=== PATIENT | male | born 1955 | race Caucasian/White ===

== ENCOUNTER 2016-09-09 14:20 | Inpatient (IN) | payer BC ==
[~2016-09-09] VITALS: Ht 170.2 cm; Wt 108.4 kg
--- NOTE | ~2016-09-09 | HC ---
[facility] [place] [address] CONSULTATION Name: BROOKE HERNANDEZ Room #: 245-P ADM IN M.R.#: [id number] Admission: 09/09/16 Attend Phys: Isai Page DO Discharge: Date of : 53 Report #: [id number] THIS REPORT FOR: //name// CC: Beck Page DATE OF SERVICE: 09/10/2016 We were asked to see the patient by Dr. Sepulveda. HISTORY OF PRESENT ILLNESS: The patient is a 61-year-old who was transferred here from [facility]. The patient had the acute onset of severe chest pain Friday morning 2:00 a.m. and came to [place] for that. This was a severe substernal chest pain described as sharp, radiating to the left arm associated with some nausea and diaphoresis. The patient had cardiac catheterization on September 09. This showed satisfactory ventricular function, but 70% LAD, 95% diagonal, 60% circumflex and 95% distal right coronary stenoses. Left ventricular function was satisfactory as mentioned. PAST MEDICAL HISTORY: Significant for hypertension and diabetes. ALLERGIES: None known. MEDICATIONS: At home, atenolol and metformin. The patient is on IV heparin currently as well as aspirin. 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 Former smoker. FAMILY HISTORY: Negative for heart disease. REVIEW OF SYSTEMS: CONSTITUTIONAL: No fever or chills. HEENT: No vision problems. No headache, no nasal congestion, sore throat or hearing issues. CHEST: No shortness of breath, no sputum production. CARDIAC: As mentioned, chest pain, no palpitations. GASTROINTESTINAL: Some nausea associated with chest pain. The patient also is bothered by gastroesophageal reflux. No abdominal pain, difficulty with stools. GENITOURINARY: No urgency or frequency. MUSCULOSKELETAL: No bone or joint problems. NEUROLOGIC: No motor or sensory dysfunction. PSYCHIATRIC: No depression or anxiety. LYMPHATIC AND HEMATOLOGIC: No swelling, no anemia. [facility] [address] [address] CONSULTATION Name: BROOKE HERNANDEZ [facility] Room #: 245-P [facility] IN M.R.#: [id number] Admission: 09/09/16 Attend Phys: Isai Page DO Discharge: Date of : 53 Report #: [id number] ENDOCRINE: As mentioned takes metformin for diabetes. No hot or cold intolerance. PHYSICAL EXAMINATION: GENERAL: The patient is a pleasant fellow with an endomorphic habitus, centripetal obesity. VITAL SIGNS: Temperature 36.3, heart rate 74, respiratory rate 18, blood pressure 132/86. HEENT: No scleral icterus, no arcus. Pupils equal, round, gaze conjugate, normocephalic. NECK: No mass, no bruit. CHEST: Clear to auscultation. No adventitious sounds. HEART: Rhythm regular, no murmurs, gallops. ABDOMEN: Protuberant, soft, no mass, no tenderness. EXTREMITIES: No clubbing, cyanosis or edema. SKIN: No rash or infection. NEUROLOGIC: No motor or sensory dysfunction. Oriented and appropriate. PSYCHIATRIC: Mood is appropriate and the patient shows insight into problem. IMPRESSION: The patient has important 3-vessel coronary artery disease with preserved ventricular function. We have recommended coronary artery bypass surgery unstable angina. Risks and details were discussed. Options and alternatives were reviewed. The patient understands all of this and he wishes to proceed. We planned surgery for tomorrow morning. Thank you for the consult. <ELECTRONICALLY SIGNED> By: Mynor Moser MD 09/11/162009 1602 1949 Mynor Moser MD /nt
--- NOTE | ~2016-09-09 | H ---
[facility] [address] HISTORY AND PHYSICAL Name: BROOKE HERNANDEZ Room #: 211-P ADM IN M.R.#: [id number] Admission: 09/09/16 Attend Phys: Isai Page DO Discharge: Date of : 53 Report #: [id number] THIS REPORT FOR: //name// CC: Beck Page DATE OF ADMISSION: 09/09/2016 ATTENDING PHYSICIAN: Lucía Jones M.D. PRIMARY CARE PHYSICIAN: Radhames Marroquin M.D. CHIEF COMPLAINT: Chest pain. HISTORY OF PRESENT ILLNESS: The patient is a 61-year-old male, who was transferred to [facility] as a direct admission from [place]. He was initially admitted there with sudden onset of chest pain and it was noted to have a non-ST elevation WA. He went for heart catheterization today and it showed multiple areas of stenosis including 95% in the 1st diagonal 90% stenosis in the third diagonal, 70% stenosis in LAD and 95% stenosis in the distal RCA. He was sent here for further cardiothoracic surgery evaluation. His EF on the heart catheterization was 65%. He denies any prior history of coronary artery disease or any prior episodes of chest pain. He has never seen a sample cutter previously. He is currently chest pain free and resting comfortably. PAST MEDICAL HISTORY: Diabetes, hypertension, hyperlipidemia, arthritis. PAST SURGICAL HISTORY: Laminectomy, right foot surgery x 2 including ankle fusion, tonsillectomy, left rotator cuff repair. ALLERGIES: PENICILLIN AND NIACIN. HOME MEDICATIONS: Fenofibrate 160 mg daily, pravastatin 20 mg daily, fish oil 1200 mg b.i.d., naproxen 500 mg b.i.d., metformin 500 mg b.i.d., multivitamin daily, cinnamon bark daily and Tenoretic 1 tab daily. SOCIAL HISTORY: The patient is an ex-smoker, having quit 20 years ago after smoking for about 20 years. He denies any alcohol or drug use. 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 He lives at home with his . FAMILY HISTORY: Significant for diabetes in his mother and cancer in father, who ended up dying of bilateral PEs shortly after prostate surgery and there are no family members with heart disease. REVIEW OF SYSTEMS: Twelve point review of systems was reviewed with the patient, otherwise negative unless stated in the HPI. [facility] [address] [place] [address] HISTORY AND PHYSICAL Name: BROOKE HERNANDEZ Room #: 211-P [facility] IN M.R.#: [id number] Admission: 09/09/16 Attend Phys: Isai Page DO Discharge: Date of : 53 Report #: [id number] PHYSICAL EXAMINATION: GENERAL: The patient is an alert male in no acute distress. VITAL SIGNS: Temperature is 36.3, heart rate 72, respirations 20, blood pressure is 135/80, oxygen 100% on room air. HEENT: PERRLA. Sclerae is nonicteric. Oral mucosa is pink and moist. NECK: Supple, no JVD noted. CARDIOVASCULAR: Normal S1, S2. No murmurs, rubs or gallops. RESPIRATORY: Breath sounds are clear bilaterally. He is diminished in both bases. Breathing is nonlabored. ABDOMEN: Obese, with soft and nontender with positive bowel sounds. VASCULAR: No edema noted. Pedal pulses are 2+. NEUROLOGIC: The patient is alert and oriented x 3. Speech is clear. He is answering questions appropriately and following commands. No focal deficits noted. LABORATORY DATA: WBC of 6.3, hemoglobin 12.7, platelets 238. Sodium 138, potassium 3.7, BUN 16, creatinine 1.0. Glucose 148, magnesium 1.9. INR 1.1. Troponin is 1.18. Cholesterol was 184, triglycerides are 278, LDL 97. BNP 61. LFTs were within normal limits. Chest x-ray was negative. ASSESSMENT AND PLAN: 1. Non-ST elevation with multivessel coronary artery disease. The patient was taken here for CABG evaluation by cardiothoracic surgery. He has already had lower extremity ultrasound for vein staging and chest x-ray. We will check an echocardiogram in the morning, as this was not done at [place]. He is on heparin drip, which we will continue. He is currently chest pain free. Continue beta renae. 2. Diabetes type 2. Add sliding scale insulin, continue metformin. Accu-Chek before meals and at bedtime. 3. Hypertension. Blood pressure is stable, continue home meds. Continue with metoprolol per Cardiology. 4. Hyperlipidemia. His cholesterol was controlled. are elevated, continue statin therapy and fish oil and fenofibrate. 5. Deep venous thrombosis prophylaxis. Continue heparin drip. We will continue to follow the patient closely throughout the hospitalization and make changes based on clinical status. By: [id number] Alexia Cleary, KAYLEE /nt
--- NOTE | ~2016-09-09 | EKG ---
[address] [place] [address] ELECTROCARDIOGRAM REPORT Name: BROOKE HERNANDEZ Room #: 210-P ADM IN M.R.#: [id number] Admission: 09/09/16 Attend Phys: Isai Page DO Discharge: Date of : 53 Report #: [id number] THIS REPORT FOR: //name// [facility] Test Date: 2016-09-15 Test Time: 07:28:39 Pat Name: BROOKE HERNANDEZ Department: Room: 210 P Gender: M Baker Bread: MARGI : 1955 Requested By: Mynor Moser Order Number: [id number] MD: Thomas Ochoa Measurements Intervals [place] Rate: 92 P: 50 DC: 135 QRS: -1 QRSD: 102 T: 12 QT: 410 QTc: 508 Interpretive Statements Sinus rhythm Nonspecific ST and T wave abnormality Prolonged QT interval Compared to ECG 09/12/2016 17:46:12 Prolonged QT interval now present Electronically Signed On 09-16-2016 9:06:04 CDT by Thomas Ochoa [email or web address] <ELECTRONICALLY SIGNED> By: Thomas Ochoa MD, [facility] 03/905 7 7 Thomas Ochoa MD, [facility] /EPI
--- NOTE | ~2016-09-09 | HC ---
[facility] [place] [address] CONSULTATION Name: BROOKE HERNANDEZ Room #: 210-P ADM IN M.R.#: [id number] Admission: 09/09/16 Attend Phys: Isai Page DO Discharge: Date of : 53 Report #: [id number] THIS REPORT FOR: //name// CC: Beck Page DATE OF SERVICE: 09/10/2016 DATE OF SERVICE: 09/10/2016 HISTORY OF PRESENT ILLNESS: The patient is a 61-year-old white male, who is admitted and transferred from [facility] for consideration for coronary artery bypass surgery. The patient had no previous history of heart disease. He was doing well until last weekend when he felt the discomfort in his chest went into his left arm, became nauseated and vomited and became diaphoretic. He finally went to the Emergency Room at [facility] in the early childhood coordinator hours of September 06. He was seen by my partner, Dr. Agarwal. He was felt to be having unstable angina. I performed a cardiac catheterization on September 09, from the right radial artery. This showed normal left ventricular function. There was a 70% stenosis of the proximal LAD, 95% stenosis first diagonal branch of the LAD. The second marginal branch of circumflex had a 60% stenosis. There was a 95% discrete stenosis noted of the distal right coronary artery. He is felt to have severe multivessel coronary artery disease. I recommended he be considered for coronary artery bypass surgery. The patient has been pain free since his admission. He was transferred to [facility] by ambulance yesterday for consideration of coronary artery bypass surgery. PAST MEDICAL HISTORY: Otherwise significant for shoulder surgery, foot surgery, tonsillectomy and a history of hypertension, diabetes, hyperlipidemia. His medications at home include atenolol, chlorthalidone, fenofibrate. He is on insulin, metformin, Naprosyn, fish oil, pravastatin. 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 He quit smoking years ago. No alcohol abuse. FAMILY HISTORY: Negative for heart disease. REVIEW OF SYSTEMS: There has been no history of stroke, peptic ulcer disease. He does have seasonal allergies. No history of kidney disease or cancer. PHYSICAL EXAMINATION: VITAL SIGNS: His blood pressure was 130/80, pulse 70, he is afebrile. HEENT: He was anicteric. Mucous membranes moist. NECK: Supple. [facility] [address] [place] [address] CONSULTATION Name: BROOKE HERNANDEZ Room #: 210-P [facility] IN .R.#: [id number] Admission: 09/09/16 Attend Phys: Isai Page DO Discharge: Date of : 53 Report #: [id number] CHEST: Clear to auscultation. CARDIOVASCULAR: Regular rate and rhythm. ABDOMEN: Soft. EXTREMITIES: Had no edema. SKIN: Warm, dry. NEUROLOGIC: Nonfocal. LABORATORY DATA: His workup at [facility] included a chest x-ray that showed scarring in the bases, no pulmonary edema. His lab work, sodium 138, creatinine 1.0 and glucose 148. Liver function studies were normal. His troponin on admission was 0.04, however, it peaked at 1.53, his cholesterol was 184, triglyceride 278, HDL 32 and LDL 97. White blood cell count 6.8, hemoglobin 12.5, hematocrit 37. IMPRESSION AND RECOMMENDATIONS: 1. Coronary artery disease, multivessel. Not readily amenable to stenting. Recommend consideration of coronary bypass surgery. 2. Non-ST segment elevation myocardial infarction. I would not give Plavix at this time because of need for coronary artery bypass surgery. 3. Hypertension. The patient has been on a beta renae and diuretic. Because of his diabetes, would consider adding CORI inhibitor. 4. Hyperlipidemia. The patient has been on fenofibrate and pravastatin. 5. Diabetes. <ELECTRONICALLY SIGNED> By: Sebastian Sepulveda MD, FACC 09/13/16 0727 1134 1310 Sebastian Sepulveda MD, FACC /nt
--- NOTE | ~2016-09-09 | EKG ---
[place] [address] [facility] [place] [address] ELECTROCARDIOGRAM REPORT Name: BROOKE HERNANDEZ Room #: 211-P ADM IN M.R.#: [id number] Admission: 09/09/16 Attend Phys: Isai Page DO Discharge: Date of : 53 Report #: [id number] THIS REPORT FOR: //name// [facility] Test Date: 2016-09-09 Test Time: 17:20:25 Pat Name: BROOKE HERNANDEZ Department: Room: 211 P Gender: M Sole Tier: Ramona SULLIVAN : 1955 Requested By: Mynor Moser Order Number: [id number] MD: Thomas Ochoa Measurements Intervals [place] Rate: 73 P: 68 TN: 136 QRS: -21 QRSD: 113 T: 7 QT: 418 QTc: 461 Interpretive Statements Sinus rhythm Supraventricular bigeminy Borderline T abnormalities, inferior leads No previous ECG available for comparison Electronically Signed On 09-11-2016 9:00:10 CDT by Thomas Ochoa [email or web address] <ELECTRONICALLY SIGNED> By: Thomas Ochoa MD, [facility] 09/11/16 0900 1720 19 Thomas Ochoa MD, FAC /EPI
--- NOTE | ~2016-09-09 | EKG ---
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 <ELECTRONICALLY SIGNED> By: Thomas Ochoa MD, [facility] 09/11/16 1910 1328 1328 Thomas Ochoa MD, [facility] /EPI
--- NOTE | ~2016-09-09 | 2DMMODE ---
[facility] [place] [address] 2 D/M-MODE ECHOCARDIOGRAM Name: BROOKE HERNANDEZ Room #: 211-P [facility] IN M.R.#: [id number] Admission: 09/09/16 Attend Phys: Isai Page, Discharge: Date of : 53 Date of Service: 09/10/16 0919 Report #: [id number] THIS REPORT FOR: //name// APPROVED REPORT EXAM: Comprehensive 2D, Doppler, and color-flow Echocardiogram Patient Location: Bedside/Room 211 Blood Pressure: 126/81 mmHg HR: 71 bpm Rhythm: NSR Other Information Study Quality: Adequate Indications Chest pain, Pre-Op CABG. Hx: HTN, HLP 2D Dimensions RVDd: 32.94 mm LVEF(%): 54.58 (>50%) IVSd: 9.61 (7-11mm) LVOT Diam: 21.21 (18-24mm) LVDd: 50.74 mm PWd: 10.40 (7-11mm) Ascending Aorta: 35.86 mm LVDs: 36.31 (25-40mm) Aortic Root: 37.00 mm Gutierrez's LVEF: 54.58 % Volumes Left Atrial Volume (Systole) Single Plane 4CH: 43.62 mL Single Plane 2CH: 59.35 mL LA ESV Index: 26.00 mL/m2 Aortic Valve AoV Peak Judah.: 1.70 m/s AO Peak Gr.: 11.55 mmHg LV Max P.86 mmHg LV Max: 1.31 m/s Mitral Valve MV PHT: 48.24 ms MV E Max Judah.: 0.92 m/s E/A Ratio: 0.8 MV A Judah.: 1.18 m/s MV Decel. Time: 166.35 ms TDI [facility] [place] [address] 2 D/M-MODE ECHOCARDIOGRAM Name: BROOKE HERNANDEZ [facility] Room #: [facility]- ADM IN M.R.#: [id number] Admission: 09/09/16 Attend Phys: Isai Page, Discharge: Date of : 53 Date of Service: 09/10/16 0919 Report #: [id number] E/Lateral E': 11.00 E/Medial E': 14.00 Pulmonary Valve PV Peak Judah.: 1.00 m/s PV Peak Gr.: 4.03 mmHg Tricuspid Valve TR Peak Judah.: 2.25 m/s RAP Estimate: 5.00 mmHg TR Peak Gr.: 20.16 mmHg RVSP: 25.00 mmHg Left Ventricle The left ventricle is normal size. There is normal left ventricular wall thickness. Left ventricular systolic function is normal. LVEF is 55%. Grade I - abnormal relaxation pattern. Right Ventricle The right ventricle is normal size. The right ventricular systolic function is normal. Atria The left atrium size is normal. Aneurysmal/mobile interatrial septum. The right atrium size is normal. Aortic Valve Aortic valve leaflets are mildly thickened. No aortic regurgitation is present. There is no aortic valvular stenosis. Mitral Valve Mild mitral annular calcification. There is no mitral valve regurgitation noted. Tricuspid Valve The tricuspid valve is normal in structure. There is trace tricuspid regurgitation. The right atrial pressure is estimated at 5 mmHg. Right ventricular systolic pressure is estimated at 25 mmHg. Pulmonic Valve The pulmonary valve is normal in structure. There is no pulmonic valvular regurgitation. Great Vessels The aortic root is normal in size. IVC is normal in size and collapses >50% with inspiration. Pericardium There is no pericardial effusion. [address] [address] 2 D/M-MODE ECHOCARDIOGRAM Name: BROOKE HERNANDEZ [facility] Room #: 211-P [facility] IN M.R.#: [id number] Admission: 09/09/16 Attend Phys: Isai Page, Discharge: Date of : 53 Date of Service: 09/10/16 0919 Report #: [id number] <Conclusion> The left ventricle is normal size. LVEF is 55%. Aortic valve leaflets are mildly thickened. Mild mitral annular calcification. The tricuspid valve is normal in structure. There is trace tricuspid regurgitation. The right atrial pressure is estimated at 5 mmHg. Right ventricular systolic pressure is estimated at 25 mmHg. <ELECTRONICALLY SIGNED> By: Tam Durand MD 09/10/16918 8 8 Tam Durand MD /INF
--- NOTE | ~2016-09-09 | 2DMMODE ---
[address] [address] 2 D/M-MODE ECHOCARDIOGRAM Name: BROOKE HERNANDEZ Room #: 210-P ADM IN M.R.#: [id number] Admission: 09/09/16 Attend Phys: Isai Page, Discharge: Date of : 53 Date of Service: 09/13/16 1737 Report #: [id number] THIS REPORT FOR: //name// APPROVED REPORT EXAM: Comprehensive 2D, Doppler, and color-flow Echocardiogram Patient Location: Bedside/Room 210 Blood Pressure: 128/71 mmHg HR: 90 bpm Other Information Study Quality: Adequate Indications Limited echo post-op CABG. Rule out pericardial effusion. Left Ventricle The left ventricle is grossly normal size. Paradoxical septal motion consistent with post-operative state. LVEF is 50%. Right Ventricle The right ventricle is normal size. Atria The left atrium size is normal. The right septal aneurysm Aortic Valve Aortic valve is grossly normal in structure. Mitral Valve The mitral valve is normal in structure. Tricuspid Valve The tricuspid valve is normal in structure. Pericardium There is no pericardial effusion. <Conclusion> The left ventricle normal size. Normal global and regional function. Paradoxical septal motion consistent with post-operative state. LVEF [address] [address] 2 D/M-MODE ECHOCARDIOGRAM Name: BROOKE HERNANDEZ Room #: 210-P ADM IN M.R.#: [id number] Admission: 09/09/16 Attend Phys: Isai Page, Discharge: Date of : 53 Date of Service: 09/13/161736 Report #: [id number] 50%. The atrial septal aneurysm Aortic valve is grossly normal in structure. The mitral valve is normal in structure. There is no pericardial effusion. <ELECTRONICALLY SIGNED> By: Thomas Ochoa MD, [facility] 09/13/161736 36 36 Thomas Ochoa MD, FACC /INF
--- NOTE | ~2016-09-09 | O ---
[facility] [place] [address] OPERATIVE REPORT Name: BROOKE HERNANDEZ Room #: 210-P [facility] IN M.R.#: [id number] Admission: 09/09/16 Attend Phys: Isai Page DO Discharge: 09/16/16 Date of : 53 Report #: [id number] THIS REPORT FOR: //name// CC: Beck Page DATE OF SERVICE: 09/11/2016 PREOPERATIVE DIAGNOSIS: Coronary artery disease. POSTOPERATIVE DIAGNOSIS: Coronary artery disease. OPERATION: Coronary artery bypass x 4 including left internal mammary artery to left anterior descending artery, saphenous vein to diagonal and marginal and saphenous vein to posterior descending artery and endoscopic harvest, left greater saphenous vein. SURGEON: Mynor Moser MD SANITIZER: Garcia. ANESTHESIA: General. INDICATION: After general anesthesia was established, saphenous vein was harvested using an endoscopic approach. Exposure was obtained through median sternotomy. Left internal mammary artery was harvested. Pericardial well was made. Cannulation sutures were placed. Heparin was given. Aorta was cannulated. Right atrium was cannulated. Cardioplegia needle was positioned in the aortic root. Retrograde cardioplegic catheter was placed in coronary sinus. Cardiopulmonary bypass was established. The aorta was cross clamped antegrade, then retrograde cardioplegia were given. Ice was poured in the pericardial well. The heart was stopped. During electromechanical arrest, the distal anastomoses were performed and end-to-side anastomosis was made between vein and the posterior descending artery. Cold cardioplegia was given. A separate segment of vein was sewn in end-to-side fashion to the large marginal artery. This anastomosis was done distally because of diffuse plaque. Cold cardioplegia was given. Same segment of vein was sewn in bkga-am-gnbb fashion to first diagonal or ramus intermedius. This anastomosis was done in the widest area of the vessel just after diffuse severe plaque area. Cold cardioplegia was given. Left internal mammary artery was sewn in end-to-side fashion to left anterior descending artery. Patency of this vessel was checked with the temperature technique. Cold cardioplegia was given. Two proximal anastomoses were performed. When these were complete, warm [facility] [address] [place] [address] OPERATIVE REPORT Name: BROOKE HERNANDEZ [facility] Room #: 210-P [facility] IN M.R.#: [id number] Admission: 09/09/16 Attend Phys: Isai Page DO Discharge: 09/16/16 Date of : 53 Report #: [id number] retrograde cardioplegia was given followed by warm continuous blood to the coronary sinus. When this infusion was complete, the crossclamp was removed, de-airing maneuvers were performed. The anastomoses were inspected and found to be satisfactory. As the patient warmed, nice cardiac activity resumed, chest tubes and pacing wires were placed, a marker was placed around the proximal anastomoses. When the patient was warmed, he was weaned from cardiopulmonary bypass. Venous cannula was removed. Protamine was given, the aortic cannula was removed. Flows were measured in the bypass grafts. Flow in the graft to the right side was 30 mL per minute. Flow in the graft to the left side was 30 mL per minute. A good Doppler signal was audible in the internal mammary artery. Total cross clamp time was 104 minutes, total pump time was 132 minutes. When hemostasis was satisfactory, chest was irrigated with antibiotic solution and closed in the usual fashion. The patient was taken to the Intensive Care Unit in good condition having tolerated the procedure well. All counts reported as correct. <ELECTRONICALLY SIGNED> By: Mynor Moser MD 09/18/161947 58 30 Mynor Moser MD /nt
--- NOTE | ~2016-09-09 | EKG ---
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: Ramona SULLIVAN : 1955 Requested By: Isai Page Order Number: [id number] MD: Thomas Ochoa Measurements Intervals Recluse Rate: 79 P: 42 MO: 147 QRS: -22 QRSD: 99 T: 4 QT: 395 QTc: 453 Interpretive Statements Sinus rhythm Abnormal R-wave progression, early transition Inferior infarct, old Borderline ST elevation, anterolateral leads Baseline wander in lead(s) I,II,aVR Compared to ECG 09/11/2016 13:28:16 Ventricular premature complex(es) no longer present Electronically Signed On 09-13-2016 8:30:35 CDT by Thomas Ochoa [email or web address] <ELECTRONICALLY SIGNED> By: Thomas Ochoa MD, FAC 09/13/16 0830 1746 1746 Thomas Ochoa MD, FAC /EPI
[2016-09-09 19:31] LABS: HEMOGLOBIN 12.7 gm/dL (14.0-18.0); MCH 29.2 pg (26.0-34.0); MCHC 35.2 g/dL (28.0-37.0); MCV 82.9 fL (80.0-100.0); RBC 4.34 mil/uL (4.50-6.00); RDW 14.5 % (10.5-14.5); WBC 6.3 thou/uL (4.0-11.0)
[2016-09-09 19:46] LABS: APTT 28.2 Seconds (24.5-32.8); INR 1.1; PROTIME 11.1 Seconds (9.3-11.4)
[2016-09-10] MEDS ORDERED: HYDROCHLOROTHIA25 M2 PO (00:12)
[2016-09-10] MEDS ORDERED: TENORMIN25 MG PO (00:13)
[2016-09-10] MEDS ORDERED: METFORMIN HCL500 MG PO (00:14)
[2016-09-10] MEDS ORDERED: FENOFIBRATE160 MG PO (00:16)
[2016-09-10] MEDS ORDERED: PRAVACHOL20 MG PO (00:16)
[2016-09-10] MEDS ORDERED: NAPROSYN500 MG PO (00:17)
[2016-09-10] MEDS ORDERED: TENORETIC PO (00:49)
[2016-09-10] MEDS ORDERED: CINNAMON500 MG PO (00:50)
[2016-09-10] MEDS ORDERED: CENTRUM SILVER1 EAC7 PO (00:52)
[2016-09-10] MEDS ORDERED: OMEGA-31000 M1 PO (00:53)
[2016-09-10 14:14] LABS: URINE BILIRUBIN NEGATIVE (Negative); URINE BLOOD NEGATIVE (Negative); URINE COLOR YELLOW; URINE GLUCOSE-RANDOM* TRACE (Negative); URINE KETONES NEGATIVE (Negative); URINE LEUKOCYTES-REFLEX NEGATIVE (Negative); URINE PROTEIN (DIPSTICK) NEGATIVE (Negative); URINE UROBILINOGEN 0.2 E.U./dl (0.2-1.0)
[2016-09-11 14:07] LABS: POC BE -3 mmol/L (-2.0 to +3.0); POC CA IONIZED 4.3 mg/dL (4.5-5.3); POC FiO2 100 %; POC GLUCOSE 137 mg/dL (70-99); POC HCO3 22.4 mmol/L (22.0-26.0); POC HEMOGLOBIN 10.2 g/dL (14.0-18.0); POC SODIUM 135 mmol/L (136-145); POC pCO2 40.7 mmHg (35.0-45.0); POC pH 7.349 (7.360-7.450)
[2016-09-11 14:07] LABS: POC BE 0 mmol/L (-2.0 to +3.0); POC CA IONIZED 4.5 mg/dL (4.5-5.3); POC FiO2 100 %; POC GLUCOSE 155 mg/dL (70-99); POC HCO3 24.6 mmol/L (22.0-26.0); POC HEMOGLOBIN 11.2 g/dL (14.0-18.0); POC SODIUM 135 mmol/L (136-145); POC pCO2 37.6 mmHg (35.0-45.0); POC pH 7.423 (7.360-7.450)
[2016-09-11 14:07] LABS: POC BE 1 mmol/L (-2.0 to +3.0); POC CA IONIZED 4.8 mg/dL (4.5-5.3); POC FiO2 100 %; POC GLUCOSE 138 mg/dL (70-99); POC HCO3 25.4 mmol/L (22.0-26.0); POC HEMOGLOBIN 11.6 g/dL (14.0-18.0); POC POTASSIUM 3.9 mmol/L (3.5-5.1); POC SODIUM 136 mmol/L (136-145); POC pCO2 39.6 mmHg (35.0-45.0); POC pH 7.415 (7.360-7.450)
[2016-09-11 14:07] LABS: POC BE 0 mmol/L (-2.0 to +3.0); POC CA IONIZED 4.5 mg/dL (4.5-5.3); POC FiO2 90 %; POC GLUCOSE 156 mg/dL (70-99); POC HCO3 25.4 mmol/L (22.0-26.0); POC HEMOGLOBIN 9.2 g/dL (14.0-18.0); POC POTASSIUM 4.4 mmol/L (3.5-5.1); POC SODIUM 136 mmol/L (136-145); POC pCO2 44.2 mmHg (35.0-45.0); POC pH 7.368 (7.360-7.450)
[2016-09-11 14:07] LABS: POC BE -1 mmol/L (-2.0 to +3.0); POC CA IONIZED 4.5 mg/dL (4.5-5.3); POC FiO2 90 %; POC GLUCOSE 160 mg/dL (70-99); POC HCO3 24.4 mmol/L (22.0-26.0); POC HEMOGLOBIN 9.5 g/dL (14.0-18.0); POC POTASSIUM 4.4 mmol/L (3.5-5.1); POC SODIUM 136 mmol/L (136-145); POC pCO2 42.6 mmHg (35.0-45.0); POC pH 7.365 (7.360-7.450)
[2016-09-11 14:07] LABS: POC BE 1 mmol/L (-2.0 to +3.0); POC CA IONIZED 4.3 mg/dL (4.5-5.3); POC FiO2 100 %; POC GLUCOSE 140 mg/dL (70-99); POC HCO3 26.4 mmol/L (22.0-26.0); POC HEMOGLOBIN 10.2 g/dL (14.0-18.0); POC SODIUM 135 mmol/L (136-145); POC pCO2 43.9 mmHg (35.0-45.0); POC pH 7.388 (7.360-7.450)
[2016-09-11 14:07] LABS: POC BE 0 mmol/L (-2.0 to +3.0); POC CA IONIZED 5.1 mg/dL (4.5-5.3); POC FiO2 100 %; POC GLUCOSE 134 mg/dL (70-99); POC HCO3 24.9 mmol/L (22.0-26.0); POC HEMOGLOBIN 8.8 g/dL (14.0-18.0); POC POTASSIUM 3.8 mmol/L (3.5-5.1); POC SODIUM 138 mmol/L (136-145); POC pCO2 42.8 mmHg (35.0-45.0); POC pH 7.373 (7.360-7.450)
[2016-09-11 14:07] LABS: POC BE -2 mmol/L (-2.0 to +3.0); POC CA IONIZED 4.8 mg/dL (4.5-5.3); POC FiO2 100 %; POC GLUCOSE 119 mg/dL (70-99); POC HCO3 23.3 mmol/L (22.0-26.0); POC HEMOGLOBIN 9.9 g/dL (14.0-18.0); POC POTASSIUM 3.9 mmol/L (3.5-5.1); POC SODIUM 138 mmol/L (136-145); POC pH 7.352 (7.360-7.450)
[2016-09-11 14:07] LABS: POC BE 0 mmol/L (-2.0 to +3.0); POC CA IONIZED 4.4 mg/dL (4.5-5.3); POC FiO2 90 %; POC GLUCOSE 157 mg/dL (70-99); POC HCO3 25.5 mmol/L (22.0-26.0); POC HEMOGLOBIN 9.5 g/dL (14.0-18.0); POC POTASSIUM 4.2 mmol/L (3.5-5.1); POC SODIUM 135 mmol/L (136-145); POC pCO2 47.2 mmHg (35.0-45.0); POC pH 7.341 (7.360-7.450)
[2016-09-11 14:40] LABS: HEMOGLOBIN 12.2 gm/dL (14.0-18.0); MCHC 34.8 g/dL (28.0-37.0); MCV 83.3 fL (80.0-100.0); RBC 4.21 mil/uL (4.50-6.00); RDW 14.3 % (10.5-14.5); WBC 14.7 thou/uL (4.0-11.0)
[2016-09-11 14:43] LABS: ABG SAMPLE TYPE ARTERIAL; BE(vivo) -3.4 mmol/L (-2 to +3); HCO3 21.6 mmol/L (22.0-26.0); LACTATE 1.41 mmol/L (0.5-2.0); O2(CT) 16.5 mL/dL (15.0-23.0); O2Hb 89.6 % (92.0-98.0); PCO2 39.1 mmHg (35.0-45.0); PO2 64.7 mmHg (80.0-100.0); pH 7.361 (7.360-7.450); tCO2 22.8 mmol/L (24.0-30.0)
[2016-09-11 14:45] LABS: STICK SITE LINE
[2016-09-11 14:46] LABS: ABG COMMENT POST OP; TIDAL VOLUME 670 ml
[2016-09-11 14:47] LABS: CALCIUM 8.3 mg/dL (8.5-10.1); CREATININE 1.1 mg/dL (0.6-1.3); POTASSIUM 4.3 mmol/L (3.5-5.1)
[2016-09-11 17:37] LABS: ABG SAMPLE TYPE ARTERIAL; BE(vivo) -6.2 mmol/L (-2 to +3); LACTATE 2.07 mmol/L (0.5-2.0); O2(CT) 16.7 mL/dL (15.0-23.0); O2Hb 93.5 % (92.0-98.0); PCO2 31.5 mmHg (35.0-45.0); PO2 75.6 mmHg (80.0-100.0); pH 7.374 (7.360-7.450); tCO2 18.9 mmol/L (24.0-30.0)
[2016-09-11 17:38] LABS: STICK SITE ALINE
[2016-09-11 17:39] LABS: ABG COMMENT CMV; TIDAL VOLUME 670 ml
[2016-09-11 18:02] LABS: ABG SAMPLE TYPE ARTERIAL; BE(vivo) -5.7 mmol/L (-2 to +3); HCO3 18.4 mmol/L (22.0-26.0); O2(CT) 16.5 mL/dL (15.0-23.0); O2Hb 93.4 % (92.0-98.0); PO2 73.7 mmHg (80.0-100.0); pH 7.378 (7.360-7.450); sO2 94.7 % (92.0-98.0); tCO2 19.4 mmol/L (24.0-30.0)
[2016-09-11 18:03] LABS: ABG COMMENT CPAP TRIAL.; Pressure Support 5 cm H20; STICK SITE ALINE
[2016-09-11 18:29] LABS: HEMATOCRIT 34.9 % (42.0-52.0); HEMOGLOBIN 12.1 gm/dL (14.0-18.0); MCH 28.9 pg (26.0-34.0); MCHC 34.7 g/dL (28.0-37.0); MCV 83.3 fL (80.0-100.0); RBC 4.2 mil/uL (4.50-6.00); WBC 13.6 thou/uL (4.0-11.0)
[2016-09-11 18:33] LABS: CALCIUM 8.6 mg/dL (8.5-10.1); CREATININE 1.4 mg/dL (0.6-1.3); POTASSIUM 4.3 mmol/L (3.5-5.1)
[2016-09-11 19:43] LABS: ABG SAMPLE TYPE ARTERIAL; BE(vivo) -4.8 mmol/L (-2 to +3); HCO3 19.3 mmol/L (22.0-26.0); LACTATE 2.55 mmol/L (0.5-2.0); O2(CT) 17.2 mL/dL (15.0-23.0); O2Hb 96.8 % (92.0-98.0); PCO2 32.7 mmHg (35.0-45.0); PO2 108.1 mmHg (80.0-100.0); pH 7.388 (7.360-7.450); tCO2 20.3 mmol/L (24.0-30.0)
[2016-09-11 19:45] LABS: ABG COMMENT NO COMPLICATIONS.; Face Shield 60 %; STICK SITE ALINE
[2016-09-12] MEDS ORDERED: ATENOLOL 100MG100 MG PO (02:30)
[2016-09-12 04:29] LABS: HEMATOCRIT 34.8 % (42.0-52.0); HEMOGLOBIN 11.9 gm/dL (14.0-18.0); MCH 28.9 pg (26.0-34.0); MCHC 34.1 g/dL (28.0-37.0); MCV 84.6 fL (80.0-100.0); RBC 4.11 mil/uL (4.50-6.00); RDW 14.5 % (10.5-14.5); WBC 11.5 thou/uL (4.0-11.0)
[2016-09-12 05:07] LABS: ALBUMIN 3.5 g/dL (3.4-5.0); CALCIUM 8.3 mg/dL (8.5-10.1); CREATININE 1.2 mg/dL (0.6-1.3); MAGNESIUM 2.3 mg/dL (1.8-2.4); POTASSIUM 3.6 mmol/L (3.5-5.1); TOTAL BILIRUBIN 0.7 mg/dL (<0.1-1.0); TOTAL PROTEIN 6.1 g/dL (6.4-8.2)
[2016-09-13 04:45] LABS: HEMATOCRIT 33.4 % (42.0-52.0); HEMOGLOBIN 11.3 gm/dL (14.0-18.0); MCH 28.9 pg (26.0-34.0); MCHC 33.9 g/dL (28.0-37.0); MCV 85.2 fL (80.0-100.0); RBC 3.93 mil/uL (4.50-6.00); RDW 14.5 % (10.5-14.5); WBC 13.8 thou/uL (4.0-11.0)
[2016-09-13 04:53] LABS: CALCIUM 8.7 mg/dL (8.5-10.1); CREATININE 1.1 mg/dL (0.6-1.3); POTASSIUM 4.1 mmol/L (3.5-5.1)
[2016-09-15 05:00] LABS: HEMATOCRIT 30.7 % (42.0-52.0); HEMOGLOBIN 10.4 gm/dL (14.0-18.0); MCH 28.8 pg (26.0-34.0); MCHC 33.8 g/dL (28.0-37.0); MCV 85.4 fL (80.0-100.0); RBC 3.6 mil/uL (4.50-6.00); RDW 14.4 % (10.5-14.5); WBC 11.3 thou/uL (4.0-11.0)
[2016-09-15 05:14] LABS: CALCIUM 8.6 mg/dL (8.5-10.1); CREATININE 1.1 mg/dL (0.6-1.3); POTASSIUM 3.8 mmol/L (3.5-5.1)
[2016-09-16 03:54] LABS: HEMATOCRIT 28.3 % (42.0-52.0); HEMOGLOBIN 9.8 gm/dL (14.0-18.0); MCH 29.2 pg (26.0-34.0); MCHC 34.5 g/dL (28.0-37.0); MCV 84.6 fL (80.0-100.0); PLATELET COUNT 246 thou/uL (150-400); RBC 3.35 mil/uL (4.50-6.00); RDW 14.5 % (10.5-14.5); WBC 9.1 thou/uL (4.0-11.0)
[2016-09-16 03:57] LABS: MANUAL DIFF YES
[2016-09-16 04:16] LABS: ALBUMIN 2.4 g/dL (3.4-5.0); CALCIUM 8.6 mg/dL (8.5-10.1); CREATININE 1.1 mg/dL (0.6-1.3); POTASSIUM 3.7 mmol/L (3.5-5.1); TOTAL BILIRUBIN 0.7 mg/dL (<0.1-1.0); TOTAL PROTEIN 6.2 g/dL (6.4-8.2)
[2016-09-16 04:31] LABS: ABSOLUTE NEUTROPHILS 7.9 thou/uL (1.4-8.2); TOTAL CELL COUNT 100
== END 2016-09-16 15:56 | disposition home or self-care (01) | DRG 236 ==
LOC: 2N 14:20 → TBA 09-11 14:03 → ICU 09-11 14:34 → 2N 09-12 16:06
PROVIDERS: Family Medicine; Internal Medicine Cardiovascular Disease; Nurse Practitioner; Nurse Practitioner Family; Physician Assistant; Surgery Vascular Surgery
PROC: 021209W Bypass Coronary Artery, Three Arteries from Aorta with Autologous Venous Tissue, Open Approach (ICD-10-PCS; principal; 2016-09-11)
PROC: 06BQ4ZZ Excision of Left Saphenous Vein, Percutaneous Endoscopic Approach (ICD-10-PCS; principal; 2016-09-11)
PROC: 5A1221Z Performance of Cardiac Output, Continuous (ICD-10-PCS; principal; 2016-09-11)
PROC: 02100Z9 Bypass Coronary Artery, One Artery from Left Internal Mammary, Open Approach (ICD-10-PCS; principal; 2016-09-11)
PROC: B24BZZ4 Ultrasonography of Heart with Aorta, Transesophageal (ICD-10-PCS; principal; 2016-09-11)
DX: I21.4 Non-ST elevation (NSTEMI) myocardial infarction (principal); E46 Unspecified protein-calorie malnutrition; D62 Acute posthemorrhagic anemia; E87.1 Hypo-osmolality and hyponatremia; I25.110 Atherosclerotic heart disease of native coronary artery with unstable angina pectoris; R09.02 Hypoxemia; K59.00 Constipation, unspecified; E78.5 Hyperlipidemia, unspecified; I10 Essential (primary) hypertension; E11.9 Type 2 diabetes mellitus without complications; M19.90 Unspecified osteoarthritis, unspecified site; R53.81 Other malaise; Z88.0 Allergy status to penicillin; Z88.8 Allergy status to other drugs, medicaments and biological substances; Z79.82 Long term (current) use of aspirin; Z79.899 Other long term (current) drug therapy; Z79.4 Long term (current) use of insulin; Z68.37 Body mass index [BMI] 37.0-37.9, adult; Z90.49 Acquired absence of other specified parts of digestive tract; Z87.891 Personal history of nicotine dependence; Z83.3 Family history of diabetes mellitus; Z80.9 Family history of malignant neoplasm, unspecified
CPT/HCPCS: 10078; 10081; 47000; 47001; 47002; 47297; 47405; 48888; 50249; 50409; 50456; 50498; 50668; 51301; 52131; 52259; 53327; 53358; 54118; 56524; 56525; 56526; 56527; 56528; 56531; 56534; 56639; 56660; 56805; 56898; 57093; 62110; 62950

== ENCOUNTER 2016-10-01 11:50 | Inpatient (IN) | payer BC ==
[~2016-10-01] VITALS: Ht 172.7 cm; Wt 112.8 kg
--- NOTE | ~2016-10-01 | HC ---
[facility] [place] [address] CONSULTATION Name: BROOKE HERNANDEZ Room #: 208-P ADM IN M.R.#: [id number] Admission: 10/01/16 Attend Phys: Mynor Moser MD Discharge: Date of : 53 Report #: [id number] THIS REPORT FOR: //name// CC: Beck Moser REASON FOR CONSULTATION: I was asked to evaluate concerning sternal surgical site infection. HISTORY OF PRESENT ILLNESS: The patient was a 61-year-old who underwent coronary bypass surgery on 09/11/2016. Following surgery, he developed some serous drainage at the lower aspect of his incision. No fever, chills or sweats. No increased pain. He followed up on 10/01/2016 in the outpatient clinic where there was evidence of seropurulent drainage from the lower portion of his incision. This was cultured and has so far grown gram-negative bacilli. He was taken to surgery yesterday for surgical debridement. The sternum appeared intact, more of a superficial debridement was performed. There was a small area at a more cephalad portion of the sternum which did require some debridement, but the overall stability of his sternum appeared intact. ALLERGIES: PENICILLIN, NIACIN. MEDICATIONS: As noted on his MAR including vancomycin and meropenem. PAST MEDICAL HISTORY, FAMILY HISTORY AND SOCIAL HISTORY: Unchanged from his history and physical noting underlying prediabetic, hypertension, hyperlipidemia, arthritis, ____ laminectomy, right foot surgery, ankle fusion and left rotator cuff repair. SOCIAL HISTORY: He is a nonsmoker, but has smoked in the past. No significant alcohol intake. REVIEW OF SYSTEMS: No pulmonary issues. No GI or complaints. PHYSICAL EXAMINATION: VITAL SIGNS: He is afebrile, hemodynamically stable. GENERAL: He is alert and cooperative and pleasant, in no acute distress. Peripheral IV in place, sternal wound VAC in place. HEENT: Unremarkable. LUNGS: Clear. HEART: Regular, without murmur. ABDOMEN: Soft, nontender, no hepatosplenomegaly or mass. EXTREMITIES: Vein harvest incisions left leg unremarkable. LABORATORY STUDIES: Sodium 137, potassium 4.4, bicarbonate 26, creatinine 1, [address] [address] CONSULTATION Name: BROOKE HERNANDEZ ALDO Room #: [address] [place] [address] IN .R.#: [id number] Admission: 10/01/16 Attend Phys: Mynor Moser MD Discharge: Date of : 53 Report #: [id number] liver function test normal. Hemoglobin 8.5, white count 6.6, platelet count 406,000. Chest x-ray, basilar scarring and atelectasis. Gram stain of the drainage, no organisms seen. Culture positive for gram-negative bacilli at 24 hours. IMPRESSION: Surgical site infection following coronary bypass grafting. So far, gram-negative bacilli have been identified. PLAN: Recommend continuing vancomycin and meropenem pending further culture data. Duration of his IV antibiotic therapy will depend on the organisms identified and how his ____ progresses. <ELECTRONICALLY SIGNED> By: Westley Haji MD 10/04/16 1328 0824 1920 Westley Haji MD /nt
--- NOTE | ~2016-10-01 | H ---
[facility] [place] [address] HISTORY AND PHYSICAL Name: BROOKE HERNANDEZ Room #: 208-P [facility] IN M.R.#: [id number] Admission: 10/01/16 Attend Phys: Mynor Moser MD Discharge: 10/07/16 Date of : 53 Report #: [id number] THIS REPORT FOR: //name// CC: Beck Moser DATE OF SERVICE: 10/01/2016 HISTORY OF PRESENT ILLNESS: The patient is a 61-year-old admitted from our office. The patient is known to me from coronary artery bypass surgery on September 11. The patient had coronary artery bypass times 4. The patient had a satisfactory hospital convalescence. He had done well at home until noting some drainage from the sternal wound. The patient and his states that this drainage began almost immediately upon returning home, but nothing specific was done and nobody was told about it until he was seen in the cardiology office today. They transferred the patient to our office and a direct admit was done. As mentioned, the patient has had some seropurulent drainage from the bottom pole sternal incision. I opened this in the office and clearly the wound was tracking cephalad and I thought that we should admit the patient for IV antibiotics and for the wound should be explored and cleansed in the operating room. The patient denies fever or chills at home. He has not been eating well, but he has no other specific complaints. Other problems include diabetes mellitus, hypertension, and hyperlipidemia. MEDICATIONS AT HOME: Iron, fenofibrate, pravastatin, omega-3, atenolol, Naprosyn, metformin, and vitamins. ALLERGIES: PENICILLIN and NIACIN. 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 He is a former smoker. FAMILY HISTORY: Negative for heart disease. REVIEW OF SYSTEMS: As mentioned. CONSTITUTIONAL: No fever or chills. EYES: No vision changes. HEENT: No headaches. No hearing problems. No sore throat or nasal discharge. RESPIRATORY: Denies shortness of breath. CARDIAC: No chest pain. We do note the sternal drainage. SKIN: No other rash or infection. NEUROLOGIC: No motor or sensory loss. [facility] [address] [place] [address] HISTORY AND PHYSICAL Name: BROOKE HERNANDEZ ALDO Room #: 208-P [facility] IN .R.#: [id number] Admission: 10/01/16 Attend Phys: Mynor Moser MD Discharge: 10/07/16 Date of : 53 Report #: [id number] MUSCULOSKELETAL: No new bone or joint complaints. The patient does have some chronic osteoarthritis. ENDOCRINE: No hot or cold intolerance. The patient does have diabetes mellitus. PSYCHIATRIC: No depression or anxiety. The patient has been in good spirit. IMMUNOLOGIC: No lupoid rash. No rheumatoid . PHYSICAL EXAMINATION: VITAL SIGNS: Blood pressure 132/92, temperature 36.8, heart rate 95, and room air oxygen saturation 95-99%. HEENT: No scleral icterus. No arcus. No oral or nasal injection. NECK: No lymphadenopathy. No bruit. CHEST: Slightly decreased breath sounds, left chest, but clear above. HEART: Rhythm is regular. No murmurs are audible. There is some drainage from the sternal incision, which we probed and dressed in the office. Sternum appears to be stable to palpation. ABDOMEN: Soft, no mass, no tenderness. EXTREMITIES: No clubbing, cyanosis or edema. SKIN: No rash or infection. NEUROLOGIC: No motor or sensory loss. Gait is fine. Oriented and appropriate. PSYCHIATRIC: Mood is neither artificially elevated or depressed. The patient shows insight into problems. IMPRESSION: The patient has at least superficial wound infection. We will explored this in the operating room, cleanse the wound and remove wires and necessary. Risks and details of all of this were discussed with the patient and his . Options and alternatives were reviewed. The patient understands all of this and wishes to proceed. Thank you for the consult. <ELECTRONICALLY SIGNED> By: Mynor Moser MD 10/09/16 0814 1552 1639 Mynor Moser MD /nt
[~2016-10-01 11:50] MED LIST: ATENOLOL 100MG100 MG PO; CENTRUM SILVER1 EAC7 PO; CINNAMON500 MG PO; FENOFIBRATE160 MG PO; HYDROCHLOROTHIA25 M2 PO; METFORMIN HCL500 MG PO; NAPROSYN500 MG PO; OMEGA-31000 M1 PO; PRAVACHOL20 MG PO; TENORETIC PO; TENORMIN25 MG PO
[2016-10-01 12:10] VITALS: BP 132/92
[2016-10-01 13:02] LABS: HEMATOCRIT 29.5 % (42.0-52.0); MCH 27.3 pg (26.0-34.0); MCHC 33.8 g/dL (28.0-37.0); MCV 80.7 fL (80.0-100.0); RBC 3.66 mil/uL (4.50-6.00); RDW 15.7 % (10.5-14.5); WBC 6.5 thou/uL (4.0-11.0)
[2016-10-01 13:18] LABS: ALBUMIN 2.7 g/dL (3.4-5.0); CALCIUM 9.3 mg/dL (8.5-10.1); CREATININE 0.9 mg/dL (0.7-1.3); POTASSIUM 4.3 mmol/L (3.5-5.1); TOTAL BILIRUBIN 0.4 mg/dL (<0.1-1.0); TOTAL PROTEIN 6.9 g/dL (6.4-8.2)
[2016-10-01] MEDS ORDERED: IRON325 PO (13:36)
[2016-10-01 19:52] VITALS: BP 120/79
[2016-10-02] VITALS (12 sets, daily range): BP systolic 11–146; BP diastolic 62–124
[2016-10-03] VITALS (15 sets, daily range): BP systolic 88–158; BP diastolic 60–94
[2016-10-03 06:10] LABS: HEMATOCRIT 25.4 % (42.0-52.0); HEMOGLOBIN 8.5 gm/dL (14.0-18.0); MCH 27.5 pg (26.0-34.0); MCHC 33.5 g/dL (28.0-37.0); RBC 3.1 mil/uL (4.50-6.00); RDW 15.7 % (10.5-14.5); WBC 6.6 thou/uL (4.0-11.0)
[2016-10-03 06:22] LABS: CALCIUM 8.5 mg/dL (8.5-10.1); POTASSIUM 4.4 mmol/L (3.5-5.1)
[2016-10-04 03:52] VITALS: BP 144/88
[2016-10-04 16:20] VITALS: BP 137/73
[2016-10-04 16:46] VITALS: BP 145/82
[2016-10-04 19:42] VITALS: BP 150/84
[2016-10-05 03:26] VITALS: BP 133/84
[2016-10-05 03:47] LABS: ABSOLUTE NEUTROPHILS 4.1 thou/uL (1.4-8.2); BASOPHILS 1.1 % (0.0-2.0); EOSINOPHILS 4.1 % (0.0-3.0); HEMATOCRIT 25.2 % (42.0-52.0); HEMOGLOBIN 8.7 gm/dL (14.0-18.0); LYMPHOCYTES 17.1 % (24.0-44.0); MCH 27.7 pg (26.0-34.0); MCHC 34.4 g/dL (28.0-37.0); MCV 80.6 fL (80.0-100.0); MONOCYTES 7.3 % (1.0-8.0); PLATELET COUNT 384 thou/uL (150-400); POLYS 70.4 % (36.0-66.0); RBC 3.12 mil/uL (4.50-6.00); RDW 15.6 % (10.5-14.5); WBC 5.8 thou/uL (4.0-11.0)
[2016-10-05 03:51] LABS: CALCIUM 8.8 mg/dL (8.5-10.1); CREATININE 0.9 mg/dL (0.7-1.3); POTASSIUM 3.7 mmol/L (3.5-5.1)
[2016-10-05 04:06] LABS: MANUAL DIFF NO
[2016-10-05 08:00] VITALS: BP 150/88
[2016-10-05 12:00] VITALS: BP 133/79
[2016-10-05 16:38] VITALS: BP 139/80
[2016-10-05 19:40] VITALS: BP 144/85
[2016-10-06 04:13] VITALS: BP 143/85
[2016-10-06 07:50] VITALS: BP 129/78
[2016-10-06 11:20] VITALS: BP 120/71
[2016-10-06 16:45] VITALS: BP 125/79
[2016-10-06 19:34] VITALS: BP 134/77
[2016-10-07 04:00] VITALS: BP 135/92
[2016-10-07 07:15] VITALS: BP 145/82
[2016-10-07] MEDS ORDERED: LORTAB 7.5-3251 EACH PO (08:44)
[2016-10-07 09:42] VITALS: BP 145/82
== END 2016-10-07 18:39 | disposition home health service (06) | DRG 982 ==
LOC: 2N 11:50 → ICU 10-02 15:36 → 2N 10-03 10:46
PROVIDERS: Family Medicine; Physician Assistant
PROC: 0PB00ZZ Excision of Sternum, Open Approach (ICD-10-PCS; principal; 2016-10-02)
DX: I25.10 Atherosclerotic heart disease of native coronary artery without angina pectoris (principal); E44.0 Moderate protein-calorie malnutrition; M19.90 Unspecified osteoarthritis, unspecified site; E11.9 Type 2 diabetes mellitus without complications; E78.5 Hyperlipidemia, unspecified; D64.9 Anemia, unspecified; Z95.1 Presence of aortocoronary bypass graft; Z88.0 Allergy status to penicillin; Z68.37 Body mass index [BMI] 37.0-37.9, adult; Z88.1 Allergy status to other antibiotic agents; I10 Essential (primary) hypertension
CPT/HCPCS: 10078; 10081; 27001; 50010; 50101; 50366; 50386; 50417; 50643; 51301; 53078; 53358; 62110; 62900; 70005